=== PATIENT | female | born 1990 | race Caucasian/White ===

== ENCOUNTER 2017-05-13 16:56 | Emergency (ER) | payer OTHER ==
--- NOTE | 2017-05-13 17:16 | Emergency Department Record ---
History of Present Illness - General Chief Complaint: Bloodborne Pathogen Exposure Stated Complaint: NEEDLESTICK Time Seen by Provider: 05/13/17 17:07 Source: Patient Mode of Arrival: Ambulatory Limitations: No limitations - History of Present Illness Initial comments: pt poked herself w a needle when drawing blood. there were 2 needles and she states she 95% sure that it was the clean needle. -: Minutes(s) Location: Left, Upper extremity Quality: Sharp - Related Data Home Medications Medication Instructions Recorded Confirmed Last Taken Escitalopram Oxalate [Lexapro] 10 mg PO DAILY 05/13/17 05/13/17 05/12/17 Norgestimate-Ethinyl Estradiol 1 tab PO DAILY 05/13/17 05/13/17 05/12/17 [[place]-Linyah 28 Tablet] Previous Rx's Medication Instructions Recorded Ezetimibe [Zetia] 10 mg PO DAILY #90 tablet 08/21/15 Omeprazole [Prilosec] 40 mg PO DAILY #90 capsule. 08/21/15 Allergies Allergy/AdvReac Type Severity Reaction Status Date / Time atorvastatin calcium AdvReac BODY ACHES Verified 05/13/17 17:12 [From Lipitor] Review of Systems Reviewed: No additional complaints except as noted below Constitutional: Reports: As per HPI. Denies: Chills, Fever, Malaise, Night sweats, Weakness, Weight change Eyes: Reports: As per HPI. Denies: Eye discharge, Eye pain, Photophobia, Vision change ENT: Reports: As per HPI. Denies: Congestion, Dental pain, Ear pain, Epistaxis , Hearing loss, Throat pain Respiratory: Reports: As per HPI. Denies: Cough, Dyspnea, Hemoptysis, Stridor, Wheezes Cardiovascular: Reports: As per HPI. Denies: Arrhythmia, Chest pain, Dyspnea on exertion, Edema, Murmurs, Orthopnea, Palpitations, Paroxysmal nocturnal dyspnea, Rheumatic Fever, Syncope Endocrine: Reports: As per HPI. Denies: Fatigue, Heat or cold intolerance, Polydipsia, Polyuria Gastrointestinal: Reports: As per HPI. Denies: Abdominal pain, Constipation, Diarrhea, Hematemesis, Hematochezia, Melena, Nausea, Vomiting Genitourinary: Reports: As per HPI. Denies: Abnormal menses, Discharge, Dyspareunia, Dysuria, Frequency, Hematuria, Incontinence, Retention, Urgency Musculoskeletal: Reports: As per HPI. Denies: Arthralgia, Back pain, Gout, Joint swelling, Myalgia, Neck pain Skin: Reports: As per HPI. Denies: Bruising, Change in color, Change in hair/ nails, Lesions, Pruritus, Rash Neurological: Reports: As per HPI. Denies: Abnormal gait, Confusion, Headache, Numbness, Paresthesias, Seizure, Tingling, Tremors, Vertigo, Weakness Psychiatric: Reports: As per HPI. Denies: Anxiety, Auditory hallucinations, Depression, Homicidal thoughts, Suicidal thoughts, Visual hallucinations Hematological/Lymphatic: Reports: As per HPI. Denies: Anemia, Blood Clots, Easy bleeding, Easy bruising, Swollen glands Physical Exam - General General Appearance: Alert, Oriented x3, Cooperative, No acute distress - Head Head exam: Normal inspection - Eye Eye exam: Normal appearance, PERRL, EOMI Pupils: Normal accommodation - ENT ENT exam: Normal exam, Mucous membranes moist, Normal external ear exam, Normal orophraynx Ear exam: Normal external inspection. negative: External canal tenderness Nasal Exam: Normal inspection. negative: Discharge, Sinus tenderness Mouth exam: Normal external inspection, Tongue normal Teeth exam: Normal inspection. negative: Dental caries Throat exam: Normal inspection. negative: Tonsillar erythema, Tonsillar exudate - Neck Neck exam: Normal inspection, Full ROM. negative: Tenderness - Respiratory Respiratory exam: Normal lung sounds bilaterally. negative: Respiratory distress - Cardiovascular Cardiovascular Exam: Regular rate, Normal rhythm, Normal heart sounds - GI/Abdominal GI/Abdominal exam: Soft, Normal bowel sounds. negative: Tenderness - Rectal Rectal exam: Deferred - exam: Deferred - Extremities Extremities exam: Normal inspection, Full ROM, Normal capillary refill. negative: Tenderness - Back Back exam: Reports: Normal inspection, Full ROM. Denies: Muscle spasm, Rash noted, Tenderness - Neurological Neurological exam: Alert, CN II-XII intact, Normal gait, Oriented X3 - Psychiatric Psychiatric exam: Normal affect, Normal mood - Skin Skin exam: Dry, Intact, Normal color, Warm Course - Reevaluation(s) Reevaluation #1: 05/13/17 17:23 pt refuses prophylactic meds. she is 90% sure it was the clean needle Disposition Disposition: Discharge Clinical Impression: Needle stick injury of finger Qualifiers: Encounter type: initial encounter Qualified Code(s): S61.239A - Puncture wound without foreign body of unspecified finger without damage to nail, initial encounter Disposition: Home, Self-Care Condition: (1) Good Instructions: Needle Stick Injuries (ED) Additional Instructions: follow up with occupational health. return sooner if worse Forms: Patient Portal Access
[2017-05-13] MEDS ORDERED: Diph,Pert(Acell),Tet Vac 0.5 ML SYR IM ONE (17:19)
[2017-05-14 22:31] LABS: HEPATITIS B SURFACE ANTIGEN Nonreactive (Nonreactive); HEPATITIS C VIRUS ANTIBODY Nonreactive (Nonreactive)
== END 2017-05-13 17:43 | disposition home or self-care (01) ==
LOC: ER 16:56
DX: S60.415A Abrasion of left ring finger, initial encounter (principal); W22.8XXA Striking against or struck by other objects, initial encounter; W46.0XXA Contact with hypodermic needle, initial encounter; Y93.F9 Activity, other caregiving; Y92.238 Other place in hospital as the place of occurrence of the external cause; Y99.0 Civilian activity done for income or pay
CPT/HCPCS: 90715; 96372; 99283

== ENCOUNTER 2018-01-04 03:01 | Emergency (ER) | payer OTHER ==
--- NOTE | 2018-01-04 03:26 | Emergency Department Record ---
History of Present Illness - General Chief Complaint: Neck Injury/Pain Stated Complaint: NECK PAIN/RADIATES INTO JAW Time Seen by Provider: 01/04/18 03:02 Source: Patient Mode of Arrival: Ambulatory Limitations: No limitations - History of Present Illness Initial Comments: 27 yo female presents to ED for evaluation of right sided neck pain symptoms that began 2-3 days ago. Patient denies injury, denies ear pain or dental pain , but reports pain with palpation of the area and movement of the neck. Patient reports taking Tylneol for her pain symptoms with some improvement. Patient denies fevers, chills, sore throat, or cough symptoms. Patient denies health problems other than elevated cholesterol. Patient denies chest pain or difficulty breathing symptoms. MD Complaint: Neck pain Onset/Timin -: Hour(s) Radiation: Head Severity: Moderate Severity scale (1-10): 6 Quality: Aching Consistency: Constant, Getting worse Improves With: None Worsens With: Movement of neck Context: Turning/bending Associated Symptoms: None Treatments Prior to Arrival: Acetaminophen - Related Data Home Medications Medication Instructions Recorded Confirmed Last Taken Escitalopram Oxalate [Lexapro] 10 mg PO DAILY 01/04/18 01/04/18 Unknown Previous Rx's Medication Instructions Recorded Omeprazole [Prilosec] 40 mg PO DAILY #90 capsule. 08/21/15 Allergies Allergy/AdvReac Type Severity Reaction Status Date / Time atorvastatin calcium AdvReac BODY ACHES Unverified 06/22/17 14:01 [From LipBrightstar] Travel Screening - Travel/Exposure Within Last 30 Days Have you traveled within the last 30 days?: No Review of Systems Constitutional: Denies: Chills, Fever, Malaise, Night sweats Eyes: Denies: Eye discharge, Eye pain ENT: Denies: Congestion, Ear pain, Epistaxis Respiratory: Denies: Cough, Dyspnea Cardiovascular: Denies: Chest pain, Dyspnea on exertion Endocrine: Denies: Fatigue, Heat or cold intolerance Gastrointestinal: Denies: Abdominal pain, Nausea, Vomiting Genitourinary: Denies: Incontinence, Retention Musculoskeletal: Reports: Neck pain. Denies: Arthralgia, Back pain, Gout, Joint swelling Skin: Denies: Bruising, Change in color Neurological: Denies: Abnormal gait, Confusion, Headache, Seizure Psychiatric: Denies: Anxiety Hematological/Lymphatic: Denies: Anemia, Blood Clots Past Medical History - SOCIAL HISTORY Smoking Status: Never smoker Alcohol Use: None Drug Use: None - RESPIRATORY Hx Respiratory Disorders: No - CARDIOVASCULAR Hx Cardio Disorders: No - NEURO Hx Neuro Disorders: No - GI Hx GI Disorders: Yes Hx Reflux: Yes - Hx Genitourinary Disorders: No - ENDOCRINE Hx Endocrine Disorders: No - MUSCULOSKELETAL Hx Musculoskeletal Disorders: No - PSYCH Hx Psych Problems: Yes Hx Anxiety: Yes Hx Depression: Yes - HEMATOLOGY/ONCOLOGY Hx Hematology/Oncology Disorders: No Family Medical History Any Significant Family History?: No Physical Exam - General General Appearance: Alert, Oriented x3, Cooperative, No acute distress Limitations: No limitations - Head Head exam: Atraumatic, Normocephalic, Normal inspection Head exam detail: negative: Abrasion, Contusion, Olivas's sign, General tenderness, Hematoma, Laceration - Eye Eye exam: Normal appearance. negative: Conjunctival injection, Periorbital swelling, Periorbital tenderness, Scleral icterus - ENT Ear exam: negative: Auricular hematoma, Auricular trauma Nasal Exam: negative: Active bleeding, Discharge, Dried blood, Foreign body Mouth exam: negative: Drooling, Laceration, Muffled voice, Tongue elevation Throat exam: negative: Tonsillar erythema, Tonsillomegaly, R peritonsillar mass , L peritonsillar mass - Neck Neck exam: Tenderness (Mild TTP along the right SCM on examination). negative: Lymphadenopathy, Meningismus - Respiratory Respiratory exam: Normal lung sounds bilaterally. negative: Rales, Respiratory distress, Rhonchi, Stridor - Cardiovascular Cardiovascular Exam: Regular rate, Normal rhythm, Normal heart sounds - GI/Abdominal GI/Abdominal exam: Soft. negative: Rebound, Rigid, Tenderness - Rectal Rectal exam: Deferred - exam: Deferred - Extremities Extremities exam: Normal inspection. negative: Calf tenderness, Pedal edema, Tenderness - Back Back exam: Reports: Normal inspection. Denies: CVA tenderness (R), CVA tenderness (L) - Neurological Neurological exam: Alert, Normal gait, Oriented X3 - Psychiatric Psychiatric exam: Normal affect, Normal mood - Skin Skin exam: Normal color. negative: Abrasion Type of lesion: negative: abrasion Course Vital Signs 01/04/18 03:07 Temperature 97.5 F L Pulse Rate [ 79 Pulse Ox Probe] Respiratory 20 Rate Blood Pressure 137/95 [Left Arm] Pulse Ox 100 - Reevaluation(s) Reevaluation #1: 01/04/18 03:35 patient's symptoms appear c/w SCM spasm/pain, no lymphadenoapthy or crepitation , no dental tenderness, normal examination of the TM as well on exam. Patient was encouraged to use Ibuprofen as needed for her pain symptoms and appears stable for discharge at this time. Disposition Disposition: Discharge Clinical Impression: Sternocleidomastoid muscle tenderness Disposition: Home, Self-Care Condition: (2) Stable Instructions: Spasmodic Torticollis (ED) Additional Instructions: Return to ED if your symptoms worsen or if you have any concerns. Motrin as directed. Follow-up with your family doctor in 3-5 days as directed. Forms: Patient Portal Access Time of Disposition: 03:26 Quality - Quality Measures Quality Measures: N/A - Blood Pressure Screening Does Patient Have Any of the Following: No Blood Pressure Classification: Hypertensive Reading Systolic Measurement: 137 Diastolic Measurement: 95 Screening for High Blood Pressure: < First Hypertensive BP, F/U Documented > [ G8950] First Hypertensive Follow-up Interventions: Referral to alternative/primary care provider.
== END 2018-01-04 03:42 | disposition home or self-care (01) ==
LOC: ER 03:01
DX: M62.838 Other muscle spasm (principal); M54.2 Cervicalgia; R68.84 Jaw pain
CPT/HCPCS: 99282

== ENCOUNTER 2018-06-12 14:49 | Emergency (ER) | payer BC ==
[2018-06-12] MEDS ORDERED: ASPIRIN 81 MG CHEWABLE TABLET PO ONE (15:18)
[2018-06-12 15:27] LABS: BASO % 0.2 % (0-6); EOS % 0.8 % (0-6); GRAN % 57.6 % (47-80); HEMATOCRIT 40.9 % (35.0-47.0); HEMOGLOBIN 14.4 gm/dl (11.6-16.0); LYMPH % 35.1 % (16-45); MEAN CELL VOLUME 88.1 fl (81-97); MEAN CORPUSCULAR HGB CONC 35.2 g/dl (32-36); MEAN PLATELET VOLUME 10.6 fl (7.4-10.4); MONO % 6.3 % (0-9); PLATELET COUNT 256 K/uL (130-400); RED BLOOD COUNT 4.64 M/uL (3.80-5.40); RED CELL DISTRIBUTION WIDTH 13.6 % (11.5-14.5); WHITE BLOOD COUNT W/O DIFF 10.4 K/uL (4.2-12.2)
[2018-06-12 15:41] LABS: BLOOD UREA NITROGEN 9 mg/dL (6-20); CREATININE 0.8 mg/dL (0.5-0.9); EST GLOMERULAR FILTRATION RATE > 60 mL/min
[2018-06-12 15:44] LABS: GLUCOSE,RANDOM 86 mg/dL (74-109)
[2018-06-12 15:46] LABS: CREATINE PHOSPHOKINASE 141 U/L (26-192)
[2018-06-12 15:56] LABS: THYROID STIMULATING HORMONE 2.34 uIU/mL (0.270-4.20)
--- NOTE | 2018-06-12 16:51 | Emergency Department Record ---
History of Present Illness - General Chief Complaint: Chest Pain Stated Complaint: CHEST PAIN Time Seen by Provider: 06/12/18 15:11 Source: Patient Mode of Arrival: Ambulatory Limitations: No limitations - History of Present Illness Initial Comments: pt has been having intermittent cp for 2 days. it feels cramp like. it lasts a few minutes. she has no other symptoms MD Complaint: Chest pain Onset/Timin -: Days(s) Onset: During rest Pain Location: Left chest Severity: Moderate Severity scale (1-10): 6 Quality: Aching Consistency: Intermittent Improves With: Nothing Worsens With: Nothing Treatments Prior to Arrival: None - Related Data Allergies Allergy/AdvReac Type Severity Reaction Status Date / Time atorvastatin calcium AdvReac BODY ACHES Verified 06/12/18 15:05 [From LipSaveFans!] Travel Screening - Travel/Exposure Within Last 30 Days Have you traveled within the last 30 days?: No - Travel/Exposure Within Last Year Have you traveled outside the [place] in the last year?: No - Additonal Travel Details Have you been exposed to anyone with a communicable illness?: No - Travel Symptoms Symptom Screening: None Review of Systems Reviewed: No additional complaints except as noted below Constitutional: Reports: As per HPI. Denies: Chills, Fever, Malaise, Night sweats, Weakness, Weight change Eyes: Reports: As per HPI. Denies: Eye discharge, Eye pain, Photophobia, Vision change ENT: Reports: As per HPI. Denies: Congestion, Dental pain, Ear pain, Epistaxis , Hearing loss, Throat pain Respiratory: Reports: As per HPI. Denies: Cough, Dyspnea, Hemoptysis, Stridor, Wheezes Cardiovascular: Reports: As per HPI. Denies: Arrhythmia, Chest pain, Dyspnea on exertion, Edema, Murmurs, Orthopnea, Palpitations, Paroxysmal nocturnal dyspnea, Rheumatic Fever, Syncope Endocrine: Reports: As per HPI. Denies: Fatigue, Heat or cold intolerance, Polydipsia, Polyuria Gastrointestinal: Reports: As per HPI. Denies: Abdominal pain, Constipation, Diarrhea, Hematemesis, Hematochezia, Melena, Nausea, Vomiting Genitourinary: Reports: As per HPI. Denies: Abnormal menses, Discharge, Dyspareunia, Dysuria, Frequency, Hematuria, Incontinence, Retention, Urgency Musculoskeletal: Reports: As per HPI. Denies: Arthralgia, Back pain, Gout, Joint swelling, Myalgia, Neck pain Skin: Reports: As per HPI. Denies: Bruising, Change in color, Change in hair/ nails, Lesions, Pruritus, Rash Neurological: Reports: As per HPI. Denies: Abnormal gait, Confusion, Headache, Numbness, Paresthesias, Seizure, Tingling, Tremors, Vertigo, Weakness Psychiatric: Reports: As per HPI. Denies: Anxiety, Auditory hallucinations, Depression, Homicidal thoughts, Suicidal thoughts, Visual hallucinations Hematological/Lymphatic: Reports: As per HPI. Denies: Anemia, Blood Clots, Easy bleeding, Easy bruising, Swollen glands Past Medical History - SOCIAL HISTORY Smoking Status: Never smoker Alcohol Use: Rare Drug Use: None - RESPIRATORY Hx Respiratory Disorders: No - CARDIOVASCULAR Hx Cardio Disorders: No - NEURO Hx Neuro Disorders: No - GI Hx GI Disorders: Yes Hx Reflux: Yes (starting age 13) Hx Rectal Bleeding: Yes - Hx Genitourinary Disorders: No - ENDOCRINE Hx Endocrine Disorders: No - MUSCULOSKELETAL Hx Musculoskeletal Disorders: No - PSYCH Hx Psych Problems: Yes Hx Anxiety: Yes Hx Depression: Yes - HEMATOLOGY/ONCOLOGY Hx Hematology/Oncology Disorders: No Family Medical History Any Significant Family History?: Yes Hx Heart Disease: Grandparents Physical Exam - General General Appearance: Alert, Oriented x3, Cooperative, Mild distress - Head Head exam: Normal inspection - Eye Eye exam: Normal appearance, PERRL, EOMI Pupils: Normal accommodation - ENT ENT exam: Normal exam, Mucous membranes moist, Normal external ear exam, Normal orophraynx Ear exam: Normal external inspection. negative: External canal tenderness Nasal Exam: Normal inspection. negative: Discharge, Sinus tenderness Mouth exam: Normal external inspection, Tongue normal Teeth exam: Normal inspection. negative: Dental caries Throat exam: Normal inspection. negative: Tonsillar erythema, Tonsillar exudate - Neck Neck exam: Normal inspection, Full ROM. negative: Tenderness - Respiratory Respiratory exam: Normal lung sounds bilaterally. negative: Respiratory distress - Cardiovascular Cardiovascular Exam: Regular rate, Normal rhythm, Normal heart sounds - GI/Abdominal GI/Abdominal exam: Soft, Normal bowel sounds. negative: Tenderness - Rectal Rectal exam: Deferred - exam: Deferred - Extremities Extremities exam: Normal inspection, Full ROM, Normal capillary refill. negative: Tenderness - Back Back exam: Reports: Normal inspection, Full ROM. Denies: Muscle spasm, Rash noted, Tenderness - Neurological Neurological exam: Alert, CN II-XII intact, Normal gait, Oriented X3 - Psychiatric Psychiatric exam: Normal affect, Normal mood - Skin Skin exam: Dry, Intact, Normal color, Warm Course Vital Signs 06/12/18 06/12/18 14:57 16:42 Temperature 98.3 F Pulse Rate 72 Pulse Rate [ 67 [employer] ] Respiratory 24 22 Rate Blood Pressure 121/68 Blood Pressure 127/73 [Left Arm] Pulse Ox 100 98 - Reevaluation(s) Reevaluation #1: 06/12/18 16:52 d/w dr quach Medical Decision Making - Lab Data Result diagrams: 06/12/18 15:00 06/12/18 15:00 Lab Results 06/12/18 06/12/18 06/12/18 Range/Units 15:00 15:00 15:00 WBC 10.4 (4.2-12.2) K/uL RBC 4.64 (3.80-5.40) M/uL Hgb 14.4 (11.6-16.0) gm/dl Hct 40.9 (35.0-47.0) % MCV 88.1 (81-97) fl MCH 31.0 (27-33) pg MCHC 35.2 (32-36) g/dl RDW 13.6 (11.5-14.5) % Plt Count 256 (130-400) K/uL MPV 10.6 H (7.4-10.4) fl Gran % 57.6 (47-80) % Lymphocytes % 35.1 (16-45) % Monocytes % 6.3 (0-9) % Eosinophils % 0.8 (0-6) % Basophils % 0.2 (0-6) % D-Dimer 0.26 (0-0.59) mg/L FEU Sodium 141 (136-145) mmol/L Potassium 3.6 (3.4-4.5) mmol/L Chloride 101 (98-107) mmol/L Carbon Dioxide 28.0 (22-29) mmol/L Anion Gap 12.0 (7-16) BUN 9 (6-20) mg/dL Creatinine 0.8 (0.5-0.9) mg/dL Estimated GFR > 60 mL/min Random Glucose 86 (74-109) mg/dL Calcium 9.2 (8.6-10.0) mg/dL Creatine Kinase 141 (26-192) U/L CK-MB (CK-2) 2.0 (<3.77) ng/mL Troponin T < 0.010 (0-0.010) ng/mL TSH 2.34 (0.270-4.20) uIU/mL Disposition Disposition: Discharge Clinical Impression: Chest pain Qualifiers: Chest pain type: unspecified Qualified Code(s): R07.9 - Chest pain, unspecified Disposition: Home, Self-Care Condition: (1) Good Instructions: Chest Pain (ED) Additional Instructions: follow up with family doctor. return sooner if worse. have echo tomorrow Quality - Quality Measures Quality Measures: N/A - Blood Pressure Screening Does Patient Have Any of the Following: No Blood Pressure Classification: Pre-Hypertensive BP Reading Systolic Measurement: 121 Diastolic Measurement: 68 Screening for High Blood Pressure: < Pre-Hypertensive BP, F/U Documented > [ G8950] Pre-Hypertensive Follow-up Interventions: Follow-up with rescreen every year.
--- NOTE | 2018-06-14 07:45 | RADIOLOGY REPORT ---
EXAM: CHEST, TWO VIEWS HISTORY: DIFFICULTY IN BREATHING. TECHNIQUE: Frontal and lateral views of the chest were performed. FINDINGS: The heart size is normal. Mild prominence of the pulmonary vascular markings. This can be seen in small airway disease. No infiltrate or pleural effusion. IMPRESSION: NO ACUTE PULMONARY DISEASE PROCESS. THERE IS MILD PROMINENCE OF THE VASCULAR MARKINGS. THIS CAN BE SEEN IN SMALL AIRWAY DISEASE. JOB NUMBER: [id number] [facility]
== END 2018-06-12 17:32 | disposition home or self-care (01) ==
LOC: ER 14:49
DX: R07.9 Chest pain, unspecified (principal)
CPT/HCPCS: 71046; 80048; 82550; 82553; 84443; 84484; 85025; 85379; 93005; 93010; 99284

== ENCOUNTER 2019-12-20 06:48 | Day surgery (SDC) | payer BC ==
[2019-12-20] MEDS ORDERED: PROPOFOL 10 MG/ML VIAL IV ONE (06:49)
[2019-12-20] MEDS ORDERED: LIDOCAINE 2% MDV (20MG/ML) 20ML VIAL IV ONE (06:49)
--- NOTE | 2019-12-21 06:40 | Operative Note ---
OPERATION: 1. ESOPHAGOGASTRODUODENOSCOPY with biopsy. 2. COLONOSCOPY with cold forceps polypectomy x2. PREOPERATIVE DIAGNOSES: 1. Heartburn. 2. Indigestion. 3. Dyspepsia. 4. Hematochezia. POSTOPERATIVE DIAGNOSES: 1. Normal upper endoscopy, rule out occult H pylori. 2. Diminutive colon polyps, otherwise normal colonoscopy. PROCEDURE: After informed consent was obtained from the patient, she was placed in the left lateral decubitus position in the endoscopy suite, sedated and monitored by the department of anesthesia. A well-lubricated [id number] gastroscope was placed in the posterior oropharynx under direct visualization and passed to the proximal, mid, and distal esophagus. The GE junction was unremarkable. The esophagus was unremarkable as well. The gastric body, antrum, pylorus, duodenal bulb, and sweep were unrevealing. J-turn views of the proximal stomach were unremarkable. The endoscope was straightened and gastric biopsies were obtained to rule out occult H pylori. The endoscope was then retracted from the patient with no new findings or abnormalities were identified. Digital rectal exam was unremarkable. A well-lubricated [id number] colonoscope was inserted into the rectum and advanced to the cecum. Preparation quality was good to excellent. The cecum, cecal bulb, ileocecal valve, ascending colon, transverse colon, descending colon, sigmoid colon, and rectum were carefully inspected. There was 1 diminutive polyp in the ascending colon and 1 diminutive polyp in the descending colon. Each were removed with a cold forceps without incident and then retrieved. Forward and J-turn views of the rectum and anorectum were unremarkable. The endoscope was straightened, the rectal ampulla deflated, and the endoscope was removed. RECOMMENDATIONS: The patient should resume her medications and diet. I would suggest a fiber supplement such as Citrucel. Further surveillance and recommendation based on tissue histology. As always, thank you for allowing me to participate in the healthcare of your patients. MELINDA
== END 2019-12-20 09:30 | disposition home or self-care (01) ==
LOC: HOP 06:48
PROVIDERS: ATTEND Internal Medicine Gastroenterology
DX: K29.50 Unspecified chronic gastritis without bleeding (principal); K44.9 Diaphragmatic hernia without obstruction or gangrene; K63.5 Polyp of colon; R10.13 Epigastric pain; K92.1 Melena; F41.8 Other specified anxiety disorders
CPT/HCPCS: 81025